=== PATIENT | female | born 1975 | race Caucasian/White ===

== ENCOUNTER 2017-06-24 03:21 | Emergency (ER) | END 2017-06-24 04:38 | disposition home or self-care (01) ==

== ENCOUNTER 2017-06-26 03:43 | Emergency (ER) | END 2017-06-26 06:13 | disposition home or self-care (01) ==

== ENCOUNTER 2017-07-19 03:54 | Emergency (ER) | END 2017-07-19 07:15 | disposition home or self-care (01) ==

== ENCOUNTER 2017-12-23 17:24 | Emergency (ER) | END 2017-12-23 20:58 | disposition home or self-care (01) ==